=== PATIENT | female | born 1950 | race Caucasian/White ===

== ENCOUNTER 2017-06-11 17:51 | Emergency (ER) | payer MEDICARE, OTHER ==
[~2017-06-11] VITALS: Ht 157.5 cm; Wt 57.3 kg
[~2017-06-11 17:51] MED LIST: ATEN-104 PO; BUSP10 PO; GABA300C3 PO; GLIP5 PO; HYDR-3535 PO; HYDR12.56 PO; PLAV75TA PO
[2017-06-11 17:59] VITALS: BP 155/69; PULSE 70; RESP 18; TEMP 97.7; O2SAT 96
[2017-06-11 19:27] VITALS: BP 124/62; PULSE 78; RESP 18; O2SAT 97
--- NOTE | 2017-06-11 19:34 | PD ---
HPI Chief Complaint: Edema Time Seen by Provider: 18:43 Travel History International Travel<30 days: No Contact w/Intl Traveler<30days: No Traveled to known affect area: No History of Present Illness HPI 66-year-old female patient with history of peripheral vascular disease status post multiple stents, multiple medical issues, presents to the ER today for several days history of increased foot and leg swelling bilaterally. She denies any chest pains, shortness of breath, fevers, or any other symptoms. She denies being on her feet a lot. She states that this has happened intermittently in the past as well. Modifying Factors: None Associated Signs & Symptoms: Bilateral foot swelling and leg swelling Risk Factors: None PFSH Past Medical History Hx Anticoagulant Therapy: Yes (PAVIX) Arthritis: Yes Anxiety: Yes Cardiovascular Problems: Yes (HTN; STENTS) High Cholesterol: Yes Chest Pain: Yes Cerebrovascular Accident: Yes (2016) Coronary Artery Disease: Yes Diabetes: Yes (TYPE 2) Diminished Hearing: No GERD: Yes Genitourinary: No Hiatal Hernia: No Hypertension: Yes Musculoskeletal: Yes Neurologic: Yes Reproductive: No (hysterectomy 1971) Respiratory: No Seizures: Yes Ulcer: Yes Past Surgical History Cardiac Surgery: Yes (bilateral caratoid endartecomy) Coronary Stent: Yes Social History Alcohol Use: No Tobacco Use: Yes (05/13 ppd) Substance Use: Yes (marijuana ) Allergies-Medications (Allergen,Severity, Reaction): Coded Allergies: bupropion (Unverified Allergy, Severe, SEIZURE, 06/11/17) morphine (Unverified Allergy, Intermediate, VOMITING, 06/11/17) Reported Meds & Prescriptions Reported Meds & Active Scripts Active Lortab 10 mg/325 mg (Hydrocodone/Acetaminophen 10 mg/325 mg) 1 Tab 1 Tab PO Q4H PRN Reported Plavix (Clopidogrel Bisulfate) 75 Mg Tab 75 Mg PO DAILY Atenolol 100 Mg Tab 100 Mg PO BID Glipizide 5 Mg Tab 5 Mg PO DAILY Buspar 10 mg Tab (Buspirone HCl) 10 Mg Tab 15 Mg PO BID Hctz (Hydrochlorothiazide) 12.5 Mg Cap 12.5 Mg PO DAILY Gabapentin 300 Mg Cap 300 Mg PO BID Review of Systems Except as stated in HPI: all other systems reviewed are Neg Physical Exam Narrative GENERAL: Well-developed elderly female patient currently in mild distress. Awake and oriented 3. SKIN: Focused skin assessment warm/dry. HEAD: Atraumatic. Normocephalic. EYES: Pupils equal and round. No scleral icterus. No injection or drainage. ENT: No nasal bleeding or discharge. Mucous membranes pink and moist. NECK: Trachea midline. No JVD. CARDIOVASCULAR: Regular rate and rhythm. No murmur appreciated. Neurovascularly intact. Good dorsal pedis pulses bilaterally. RESPIRATORY: No accessory muscle use. Clear to auscultation. Breath sounds equal bilaterally. GASTROINTESTINAL: Abdomen soft, non-tender, nondistended. Hepatic and splenic margins not palpable. MUSCULOSKELETAL: No obvious deformities. No clubbing. No cyanosis. Pitting edema of both feet. Feet are warm and well-perfused bilaterally. No pallor. NEUROLOGICAL: Awake and alert. No obvious cranial nerve deficits. Motor grossly within normal limits. Normal speech. PSYCHIATRIC: Appropriate mood and affect; insight and judgment normal. Data Data Last Documented VS Vital Signs Date Time Temp Pulse Resp B/P (MAP) Pulse Ox O2 Delivery O2 Flow Rate FiO2 06/11/17 19:27 78 18 124/62 (82) 97 Room Air 06/11/17 17:59 97.7 Orders Orders Complete Blood Count With Diff (06/11/17 18:43) Basic Metabolic Panel (Bmp) (06/11/17 18:43) B-Type Natriuretic Peptide (06/11/17 18:43) Prothrombin Time / Inr (Pt) (06/11/17 18:43) Act Partial Throm Time (Ptt) (06/11/17 18:43) Us Leg Venous Doppler Bilat (06/11/17 18:43) [facility] Medical Decision Making Medical Screen Exam Complete: Yes Emergency Medical Condition: Yes Medical Record Reviewed: Yes Differential Diagnosis DVT versus dependent edema versus cellulitis versus peripheral vascular occlusion Narrative Course Doppler pulses are present and there are no signs of cyanosis in both feet. It appears to be warm and well-perfused. Ultrasound was ordered for the patient for further evaluation. Physician Communication Physician Communication Case is signed out to Dr. Coburn at 7 PM pending ultrasound workup. Disposition based on ultrasound. Diagnosis Primary Impression: Bilateral leg edema Condition: Stable Brandon Enciso MD Jun 11, 2017 19:34
[2017-06-11] MEDS ORDERED: CLON0.5T PO (19:37)
[2017-06-11] MEDS ORDERED: TRAZ100T10 PO (19:37)
[2017-06-11] MEDS ORDERED: GABA300C5 PO (19:37)
[2017-06-11] MEDS ORDERED: ATOR40TA16 PO (19:37)
[2017-06-11] MEDS ORDERED: GLIP5TAB8 PO (19:37)
[2017-06-11] MEDS ORDERED: CLOP75TA PO (19:37)
[2017-06-11] MEDS ORDERED: HYDR1SOL6 (19:37)
[2017-06-11] MEDS ORDERED: AMLO10TA2 PO (19:37)
[2017-06-11] MEDS ORDERED: NEXI20CA PO (19:37)
[2017-06-11] MEDS ORDERED: ATEN100T PO (19:37)
[2017-06-11 20:21] LABS: AUTOMATED NEUTROPHIL # 4.1 TH/MM3 (1.8-7.7); BASOPHIL # 0.3 TH/MM3 (0-0.2); BASOPHIL % 4.2 % (0.0-2.0); EOSINOPHIL # 0.1 TH/MM3 (0-0.4); EOSINOPHIL % 1.2 % (0.0-4.0); HEMATOCRIT 38.9 % (35.0-46.0); HEMOGLOBIN 12.9 GM/DL (11.6-15.3); LYMPH % 33.9 % (9.0-44.0); LYMPHOCYTE # 2.5 TH/MM3 (1.0-4.8); MEAN CELL VOLUME 88.3 FL (80.0-100.0); MEAN CORPUSCULAR HEMOGLOBIN 29.4 PG (27.0-34.0); MEAN CORPUSCULAR HGB CONC 33.3 % (32.0-36.0); MEAN PLATELET VOLUME 8.7 FL (7.0-11.0); MONO % 4.7 % (0.0-8.0); MONOCYTE # 0.3 TH/MM3 (0-0.9); PLATELET COUNT 159 TH/MM3 (150-450); RED CELL DISTRIBUTION WIDTH 14.9 % (11.6-17.2); WHITE BLOOD COUNT 7.3 TH/MM3 (4.0-11.0)
[2017-06-11 20:33] LABS: CALCIUM 8.4 MG/DL (8.5-10.1)
[2017-06-11 20:34] LABS: BICARBONATE 26.4 MEQ/L (21.0-32.0); PROTHROMBIN TIME - PATIENT 10.6 SEC (9.8-11.6)
--- NOTE | 2017-06-11 21:13 | RADRPT ---
EXAM DATE/TIME: 06/11/2017 20:12 [place] COMPARISON: No previous studies available for comparison. INDICATIONS : Bilateral leg pain. MEDICAL HISTORY : Hypertension. Gastroesophageal reflux disease. Ulcers. CAD. SURGICAL HISTORY : Coronary artery stent. ENCOUNTER: Initial ACUITY: 1 day PAIN SCORE: 3/10 LOCATION: Bilateral legs. TECHNIQUE: Venous ultrasound of the left and right leg was performed from the inguinal ligament to the proximal calf. Real-time, color Doppler and spectral tracing, compression and augmentation techniques were us ed. FINDINGS: RIGHT LEG: There is normal compressibility of the deep venous system from the inguinal region to the proximal ca lf. No echogenic clot is seen in the lumen of the common femoral, femoral, popliteal, and posterior tibial veins. There is a normal response of the venous system to proximal and distal augmentation an d respiration. LEFT LEG: There is normal compressibility of the deep venous system from the inguinal region to the proximal ca lf. No echogenic clot is seen in the lumen of the common femoral, femoral, popliteal, and posterior tibial veins. There is a normal response of the venous system to proximal and distal augmentation an d respiration. CONCLUSION: No evidence of deep venous thrombosis within the lower extremities. Mateo Fabian MD on June 11, 2017 at 21:10 Board Certified Radiologist. This report was verified electronically.
[2017-06-11 21:20] VITALS: BP 134/53; PULSE 78; RESP 18; O2SAT 98
[2017-06-11] MEDS ORDERED: PERC5TAB12 PO (21:25)
--- NOTE | 2017-06-11 21:27 | PD ---
Physical Exam Time Seen by Provider: 21:[address] Hogan left this patient with me to check the results of the ultrasound and likely discharge. The patient had good Doppler pulses on both feet. Data Data Last Documented VS Vital Signs Date Time Temp Pulse Resp B/P (MAP) Pulse Ox O2 Delivery O2 Flow Rate FiO2 06/11/17 19:27 78 18 124/62 (82) 97 Room Air 06/11/17 17:59 97.7 Orders Orders Complete Blood Count With Diff (06/11/17 18:43) Basic Metabolic Panel (Bmp) (06/11/17 18:43) B-Type Natriuretic Peptide (06/11/17 18:43) Prothrombin Time / Inr (Pt) (06/11/17 18:43) Act Partial Throm Time (Ptt) (06/11/17 18:43) Us Leg Venous Doppler Bilat (06/11/17 18:43) Labs Laboratory Tests Test 06/11/17 20:05 White Blood Count 7.3 TH/MM3 Red Blood Count 4.40 MIL/MM3 Hemoglobin 12.9 GM/DL Hematocrit 38.9 % Mean Corpuscular Volume 88.3 FL Mean Corpuscular Hemoglobin 29.4 PG Mean Corpuscular Hemoglobin Concent 33.3 % Red Cell Distribution Width 14.9 % Platelet Count 159 TH/MM3 Mean Platelet Volume 8.7 FL Neutrophils (%) (Auto) 56.0 % Lymphocytes (%) (Auto) 33.9 % Monocytes (%) (Auto) 4.7 % Eosinophils (%) (Auto) 1.2 % Basophils (%) (Auto) 4.2 % Neutrophils # (Auto) 4.1 TH/MM3 Lymphocytes # (Auto) 2.5 TH/MM3 Monocytes # (Auto) 0.3 TH/MM3 Eosinophils # (Auto) 0.1 TH/MM3 Basophils # (Auto) 0.3 TH/MM3 CBC Comment DIFF FINAL Differential Comment Prothrombin Time 10.6 SEC Prothromb Time International Ratio 1.0 RATIO Activated Partial Thromboplast Time 26.4 SEC Blood Urea Nitrogen 17 MG/DL Creatinine 1.00 MG/DL Random Glucose 77 MG/DL Calcium Level 8.4 MG/DL Sodium Level 138 MEQ/L Potassium Level 3.4 MEQ/L Chloride Level 105 MEQ/L Carbon Dioxide Level 26.4 MEQ/L Anion Gap 7 MEQ/L Estimat Glomerular Filtration Rate 55 ML/MIN B-Type Natriuretic Peptide 46 PG/ML [facility] [place] Medical Record Reviewed: Yes Supervised Visit with AVERY: No Interpretation(s) The ultrasound is negative for DVT. The nurse found good Doppler pulses on dorsalis pedis bilaterally. The CBC is normal. The coagulation profile is normal. Differential Diagnosis DVT lower extremities, edema. Painful feet, congestive heart failure, cellulitis feet, renal insufficiency Narrative Course There is no evidence of congestive heart failure with a normal BNP and only swelling is in the feet. The patient states she does have chronic renal insufficiency. She will need to elevate her feet above her heart. She is given Percocet 5 for pain. The feet are of normal color and there is no evidence of cellulitis or infection. The patient gets nauseated with morphine, this is not a true allergy. She is told to cut back on the Percocet 5 if she does get nauseated. Diagnosis Primary Impression: Bilateral leg edema Additional Instruction: Follow-up with your primary care physician this week or early next week. Elevate your feet above your heart. Do not drink alcohol or drive on the Percocet 5. Med/Other Pt SpecificInfo: Prescription(s) given Scripts Oxycodone-Acetaminophen (Percocet) 5-325 mg Tab 1 TAB PO Q6H Y for PAIN, #28 TAB 0 Refills Prov: Neel Coburn MD 06/11/17 Disposition: 01 DISCHARGE HOME Condition: Stable Neel Coburn MD Jun 11, 2017 21:27
[2017-06-11 21:42] VITALS: BP 136/74
== END 2017-06-11 21:44 | disposition home or self-care (01) ==
LOC: PHED 17:51
DX: R60.0 Localized edema (principal); E11.51 Type 2 diabetes mellitus with diabetic peripheral angiopathy without gangrene; I10 Essential (primary) hypertension; I25.10 Atherosclerotic heart disease of native coronary artery without angina pectoris; F17.200 Nicotine dependence, unspecified, uncomplicated; F12.90 Cannabis use, unspecified, uncomplicated; Z79.84 Long term (current) use of oral hypoglycemic drugs
CPT/HCPCS: 80048; 83880; 85025; 85610; 85730; 93970; 99284

== ENCOUNTER 2017-07-29 18:41 | Emergency (ER) | payer MEDICARE, OTHER ==
[2017-07-29] VITALS (7 sets, daily range): BP systolic 110–219; BP diastolic 64–88; PULSE 58–62; RESP 16–20; TEMP 98.3; O2SAT 94–100
[~2017-07-29 18:41] MED LIST changes: +AMLO10TA2 PO; -ATEN-104 PO; +ATEN100T PO; +ATOR40TA16 PO; -BUSP10 PO; +CLON0.5T PO; +CLOP75TA PO; -GABA300C3 PO; +GABA300C5 PO; -GLIP5 PO; +GLIP5TAB8 PO; -HYDR-3535 PO; -HYDR12.56 PO; +HYDR1SOL6; +NEXI20CA PO; +PERC5TAB12 PO; -PLAV75TA PO; +TRAZ100T10 PO
[2017-07-29] MEDS ORDERED: SODIUM CHLOR 0.9% 1000 ML INJ 1,000 ML IV ONE ×2 (19:14→20:30)
[2017-07-29] MEDS ORDERED: ONDANSETRON HCL 4 MG/2 ML VIAL IV PUSH ONE (19:15)
[2017-07-29] MEDS ORDERED: SODIUM CHLORIDE 0.9% FLUSH 10 ML FLUSH IVF PRN (19:15)
--- NOTE | 2017-07-29 19:26 | PD ---
HPI Chief Complaint: Abnormal Results Time Seen by Provider: 19:05 Travel History International Travel<30 days: No Contact w/Intl Traveler<30days: No Traveled to known affect area: No History of Present Illness HPI This patient complains of diarrhea for one week. She has generalized weakness. He had lab studies done yesterday that showed hyperkalemia of 6.0 and her physician told her to come here. He was moderately severe. No alleviating factors. No Exacerbating factors. She is not vomiting. She has history of C. difficile in the past but states this feels different. PFSH Past Medical History Hx Anticoagulant Therapy: Yes Arthritis: Yes Anxiety: Yes Cardiovascular Problems: Yes (HTN; STENTS) High Cholesterol: Yes Chest Pain: Yes Cerebrovascular Accident: Yes (2015) Coronary Artery Disease: Yes Diabetes: Yes Diminished Hearing: No Gastrointestinal Disorders: Yes GERD: Yes Genitourinary: No Headaches: Yes Hiatal Hernia: No Hypertension: Yes Musculoskeletal: Yes Neurologic: Yes Reproductive: No (hysterectomy 1971) Respiratory: No Seizures: Yes Ulcer: Yes Past Surgical History Cardiac Surgery: Yes (bilateral caratoid endartecomy) Coronary Stent: Yes Social History Alcohol Use: No Tobacco Use: Yes (05/13 ppd) Substance Use: No (marijuana ) Allergies-Medications (Allergen,Severity, Reaction): Coded Allergies: bupropion (Verified Allergy, Severe, SEIZURE, 07/29/17) morphine (Verified Allergy, Intermediate, VOMITING, 07/29/17) Reported Meds & Prescriptions Reported Meds & Active Scripts Active Reported Lipitor (Atorvastatin Calcium) 40 Mg Tab 40 Mg PO HS Lisinopril 40 Mg Tab 40 Mg PO DAILY Gabapentin 300 Mg Cap 300 Mg PO TID Trazodone (Trazodone HCl) 100 Mg Tablet 100 Mg PO HS Clonazepam 0.5 Mg Tab 0.5 Mg PO BID Hydrocodon-Acetamin 7.5-325/15 (Hydrocodone/Acetaminophen) 7.5 Mg-325 Mg/15 Ml ( 15 Ml) Solution Clopidogrel (Clopidogrel Bisulfate) 75 Mg Tab 75 Mg PO DAILY Glipizide 5 Mg Tab 5 Mg PO BIDAC Take 30 minutes before a meal Atenolol 100 Mg Tab 100 Mg PO BID Procardia XL (Nifedipine) 60 Mg Tab 60 Mg PO DAILY Review of Systems General / Constitutional: No: Fever Eyes: No: Visual changes HENT: No: Headaches Cardiovascular: No: Chest Pain or Discomfort Respiratory: No: Shortness of Breath Gastrointestinal: Positive: Diarrhea, No: Abdominal Pain Genitourinary: No: Dysuria Musculoskeletal: Positive: Weakness, No: Pain Skin: No Rash Neurologic: Positive: Weakness Psychiatric: No: Depression Endocrine: No: Polydipsia Hematologic/Lymphatic: No: Easy Bruising Physical Exam Narrative GENERAL: Well-nourished, well-developed patient with weakness and diarrhea . SKIN: Focused skin assessment reveals no rash and nodules. Skin is Warm and dry. HEAD: Atraumatic. Normocephalic. EYES: Pupils equal and round. No scleral icterus. No injection or drainage. ENT: No nasal bleeding or discharge. Mucous membranes pink and moist. NECK: Trachea midline. No JVD. CARDIOVASCULAR: Regular rate and rhythm. No murmur appreciated. RESPIRATORY: No accessory muscle use. Clear to auscultation. Breath sounds equal bilaterally. GASTROINTESTINAL: Abdomen soft, non-tender, nondistended. Hepatic and splenic margins not palpable. MUSCULOSKELETAL: No obvious deformities. No clubbing. No cyanosis. No edema. NEUROLOGICAL: Awake and alert. No obvious cranial nerve deficits. Motor grossly within normal limits. Normal speech. PSYCHIATRIC: Appropriate mood and affect; insight and judgment normal. Data Data Last Documented VS Vital Signs Date Time Temp Pulse Resp B/P (MAP) Pulse Ox O2 Delivery O2 Flow Rate FiO2 07/29/17 20:00 59 18 137/75 (95) 100 Room Air 07/29/17 18:48 98.3 Orders Orders Complete Blood Count With Diff (07/29/17 19:14) Basic Metabolic Panel (Bmp) (07/29/17 19:14) Iv Access Insert/Monitor (07/29/17 19:14) Ecg Monitoring (07/29/17 19:14) Oximetry (07/29/17 19:14) Ondansetron Inj (Zofran Inj) (07/29/17 19:15) Sodium Chlor 0.9% 1000 Ml Inj (Ns 1000 M (07/29/17 19:14) Sodium Chloride 0.9% Flush (Ns Flush) (07/29/17 19:15) Sodium Chlor 0.9% 1000 Ml Inj (Ns 1000 M (07/29/17 20:30) Sodium Polysty Sulfate Liq (Kayexalate L (07/29/17 20:30) Insulin Human Regular Inj (Novolin R Inj (07/29/17 20:30) Dextrose 50% In Florian (Vial) Inj (D50w (Vi (07/29/17 20:30) Sodium Bicarbonate 8.4% Inj (Sodium Bica (07/29/17 20:30) Labs Laboratory Tests Test 07/29/17 19:37 White Blood Count 8.1 TH/MM3 Red Blood Count 4.43 MIL/MM3 Hemoglobin 13.7 GM/DL Hematocrit 40.3 % Mean Corpuscular Volume 91.0 FL Mean Corpuscular Hemoglobin 30.9 PG Mean Corpuscular Hemoglobin Concent 34.0 % Red Cell Distribution Width 15.2 % Platelet Count 201 TH/MM3 Mean Platelet Volume 8.9 FL Neutrophils (%) (Auto) 62.6 % Lymphocytes (%) (Auto) 31.1 % Monocytes (%) (Auto) 4.9 % Eosinophils (%) (Auto) 0.9 % Basophils (%) (Auto) 0.5 % Neutrophils # (Auto) 5.1 TH/MM3 Lymphocytes # (Auto) 2.5 TH/MM3 Monocytes # (Auto) 0.4 TH/MM3 Eosinophils # (Auto) 0.1 TH/MM3 Basophils # (Auto) 0.0 TH/MM3 CBC Comment DIFF FINAL Differential Comment Blood Urea Nitrogen 32 MG/DL Creatinine 1.40 MG/DL Random Glucose 77 MG/DL Calcium Level 9.4 MG/DL Sodium Level 136 MEQ/L Potassium Level 5.7 MEQ/L Chloride Level 107 MEQ/L Carbon Dioxide Level 24.3 MEQ/L Anion Gap 5 MEQ/L Estimat Glomerular Filtration Rate 38 ML/MIN [facility] Medical Decision Making Medical Screen Exam Complete: Yes Emergency Medical Condition: Yes Medical Record Reviewed: Yes Differential Diagnosis Hyperkalemia, renal failure, dehydration Narrative Course I have reviewed the patient's electronic medical record. I reviewed his doctor evaluation from today as well as lab studies from yesterday IV placed and labs sent I gave her IV Zofran and 1 L normal saline IV Initial blood pressure very elevated but will reassess 2144 reassessment reveals that her vital signs are normal Blood pressure is normal and came down spontaneously I gave her an additional liter of saline for total of 2 L and she is euvolemic Her potassium was 5.7 I gave her a dose of insulin and glucose and bicarbonate and 1 dose of Kayexalate Stable for outpatient follow-up Should discontinue DELFINO inhibitor to her doctor can reevaluate Diagnosis Primary Impression: Dehydration, moderate Additional Impressions: Hyperkalemia Generalized weakness Additional Instructions: The patient was advised to follow up with their physician and return if they worsen. Stop lisinopril until evaluated by her physician Med/Other Pt SpecificInfo: Other Disposition: 01 DISCHARGE HOME Condition: Stable Mario Fagan MD Jul 29, 2017 19:26
[2017-07-29 19:54] LABS: AUTOMATED NEUTROPHIL # 5.1 TH/MM3 (1.8-7.7); BASOPHIL % 0.5 % (0.0-2.0); EOSINOPHIL # 0.1 TH/MM3 (0-0.4); EOSINOPHIL % 0.9 % (0.0-4.0); HEMATOCRIT 40.3 % (35.0-46.0); HEMOGLOBIN 13.7 GM/DL (11.6-15.3); LYMPH % 31.1 % (9.0-44.0); LYMPHOCYTE # 2.5 TH/MM3 (1.0-4.8); MEAN CORPUSCULAR HEMOGLOBIN 30.9 PG (27.0-34.0); MEAN PLATELET VOLUME 8.9 FL (7.0-11.0); MONO % 4.9 % (0.0-8.0); MONOCYTE # 0.4 TH/MM3 (0-0.9); NEUT % 62.6 % (16.0-70.0); PLATELET COUNT 201 TH/MM3 (150-450); RED BLOOD COUNT 4.43 MIL/MM3 (4.00-5.30); RED CELL DISTRIBUTION WIDTH 15.2 % (11.6-17.2); WHITE BLOOD COUNT 8.1 TH/MM3 (4.0-11.0)
[2017-07-29 20:04] LABS: BICARBONATE 24.3 MEQ/L (21.0-32.0); CALCIUM 9.4 MG/DL (8.5-10.1)
[2017-07-29 20:08] LABS: CREATININE 1.4 MG/DL (0.50-1.00)
[2017-07-29] MEDS ORDERED: LISI40TA PO (20:12)
[2017-07-29] MEDS ORDERED: NIFE1TAB86 PO (20:12)
[2017-07-29] MEDS ORDERED: LIPI40TA PO (20:12)
[2017-07-29] MEDS ORDERED: CLON0.5T PO (20:12)
[2017-07-29] MEDS ORDERED: DEXTROSE 50% IN WATER 50 ML VIAL(D50) IV PUSH ONE (20:30)
[2017-07-29] MEDS ORDERED: SODIUM BICARBONATE 8.4% SOLN 50 MEQ/50 ML VIAL SLOW IVP ONE (20:30)
[2017-07-29] MEDS ORDERED: INSULIN HUMAN REGULAR 1,000 UNITS/10 ML VIAL IV PUSH ONE (20:30)
[2017-07-29] MEDS: SODIUM POLYSTYRENE SULFONATE SUSP 15 GM/60 ML CUP PO ONE ×2 (21:05→21:07)
== END 2017-07-29 22:56 | disposition home or self-care (01) ==
LOC: PHED 18:41
DX: E86.0 Dehydration (principal); E87.5 Hyperkalemia; R53.1 Weakness; E11.9 Type 2 diabetes mellitus without complications; I10 Essential (primary) hypertension; I25.10 Atherosclerotic heart disease of native coronary artery without angina pectoris; K21.9 Gastro-esophageal reflux disease without esophagitis; E78.00 Pure hypercholesterolemia, unspecified; F41.9 Anxiety disorder, unspecified; F17.200 Nicotine dependence, unspecified, uncomplicated; Z79.01 Long term (current) use of anticoagulants; Z79.84 Long term (current) use of oral hypoglycemic drugs; Z87.39 Personal history of other diseases of the musculoskeletal system and connective tissue; Z86.69 Personal history of other diseases of the nervous system and sense organs
CPT/HCPCS: 80048; 85025; 96361; 96374; 96375; 99283; J1815; J2405; J7030